=== PATIENT | male | born 1990 | race Caucasian/White ===

== ENCOUNTER → 2020-05-01 | Outpatient (CLI) | payer OTHER ==
--- NOTE | 2020-05-01 16:13 | XR ---
Left elbow HISTORY: Pain and swelling, trauma yesterday 3 views of left elbow Bone mineralization, joint spaces, alignment are maintained. No evident joint effusion. IMPRESSION: No fracture or dislocation.
== END | disposition home or self-care (01) ==
LOC: RADXRMAIN 13:44 → EDBD 13:44
PROVIDERS: ATTEND General Practice
DX: M25.522 Pain in left elbow (principal)